=== PATIENT | female | born 1970 | race Caucasian/White ===

== ENCOUNTER → 2020-12-24 | Outpatient (CLI) | payer BC ==
[~2020-12-24] MED LIST: K-DUR TAB 20 M20 MEQ PO
== END ==
LOC: EXRD 12-22 11:30
DX: M85.852 Other specified disorders of bone density and structure, left thigh (principal); M81.0 Age-related osteoporosis without current pathological fracture
CPT/HCPCS: 77080

== ENCOUNTER 2021-04-28 16:41 | Emergency (ER) | payer BC ==
[2021-04-28 17:29] LABS: HEMOGLOBIN 13.7 gm/dl (12.3-15.3); RED BLOOD COUNT 4.64 M/UL (4.00-5.10); WHITE BLOOD COUNT 7.8 K/UL (4.5-11.0)
[2021-04-28 17:59] LABS: BUN/CREATININE RATIO 19 (0-10)
[2021-04-28] MEDS ORDERED: CEFDINIR300 MG PO (20:25)
[2021-04-28] MEDS ORDERED: IBUPROFEN600 MG PO (20:25)
[2021-04-28] MEDS ORDERED: PREDNISONE20 MG PO (20:25)
== END 2021-04-28 22:12 | disposition home or self-care (01) ==
LOC: ER1 16:41
PROVIDERS: Nurse Practitioner
DX: N39.0 Urinary tract infection, site not specified (principal); R07.9 Chest pain, unspecified; Z87.442 Personal history of urinary calculi; Z20.822 Contact with and (suspected) exposure to COVID-19
CPT/HCPCS: 71045; 80053; 81001; 82550; 82553; 83874; 84484; 85025; 85610; 93005; 99284; U0002